=== PATIENT | male | born 1975 | race Caucasian/White ===

== ENCOUNTER 2019-03-23 16:04 | Emergency (ER) | payer BC, OTHER ==
--- OUTSIDE RECORDS SUMMARY | 2019-03-23 16:20 | XMS REPORT | Continuity of Care Document ---
:1975 External Reference #:[id number] Author Name Soco Mora M.D. Address [address] [place] [address] Care Team Providers Name Role Phone Danny Love MD - Internal Care Team Information Inspection Clerk Medicine Problems Active Problems Provider Date Benign essential hypertension Tesfaye Tyson, SHADI Onset: 06/28/2018 Testicular hypofunction Soco Mora M.D. Onset: 07/26/2018 Social History Type Date Description Comments Sex Unknown Smokeless Tobacco Never Used Smokeless Tobacco ETOH Use Rarely consumes alcohol Tobacco Use Start: Unknown End: Patient is a former smoker QUIT age 33 Unknown Recreational Drug Use Denies Drug Use Smoking Status Reviewed: 01/10/19 Patient is a former smoker QUIT age 33 Allergies, Adverse Reactions, Alerts Active Allergies Reaction Severity Comments Date Sulfa Drugs 06/28/2018 Medications Active Medications SIG Qnty Indications Ordering Date Provider 1ML Tuberculin Morgan, 02/03/2019 Syringe Detachable Leonel Wan Needle Slip Tip 21GX1" 21G X 1" 1 ML Misc Testosterone inject 0.5 milliliter 2units Morgan, 09/17/2018 Cypionate intramuscularly once Leonel Wan 200mg/ml week Solution Metoprolol 1 po daily Unknown Succinate ER 25mg Tablets ER 24HR Fish Oil 1 po daily Unknown 1000mg Capsules Multivitamin Adult 1 by mouth every day Unknown Tablets Vitamin C Immune 2 tab by mouth each Unknown Health day 500mg Chewtabs Vitamin D-3 1 by mouth every day Unknown 1000Unit Capsules Ibuprofen 200 1-2 tabs by mouth Unknown 200mg three times a day as Tablets needed Immunizations Description No Information Available Vital Signs Date Vital Result Comment 02/03/2019 3:47pm BP Systolic Sitting Left Arm 140 mmHg BP Diastolic Sitting Left Arm 78 mmHg Body Temperature 98.9 F Heart Rate 78 /min Respiratory Rate 16 /min Height 72 inches 6'0" Weight 252.12 lb BMI (Body Mass Index) 34.2 kg/m2 BSA (Body Surface Area) 2.35 m2 [place] body weight in kilograms 81 kg O2 % BldC Oximetry 97 % Ra Pain Level 0 07/26/2018 10:01am BP Systolic 148 mmHg BP Diastolic 83 mmHg Body Temperature 98.6 F Heart Rate 63 /min Respiratory Rate 18 /min Height 72 inches 6'0" Weight 250.00 lb BMI (Body Mass Index) 33.9 kg/m2 BSA (Body Surface Area) 2.34 m2 [place] body weight in kilograms 81 kg O2 % BldC Oximetry 97 % Pain Level 0 Results Test Acquired Date Facility Test Result H/L Range Note Laboratory test 01/31/2019 [facility] Testosteron 578 ng/dL 264-916 1, [address],[place] [address] [phone] Hematocrit 45.9 % Normal 38.0-48.0 Prostate Specific Antigen 0.89 ng/mL < 4.0 3 Laboratory 09/11/2018 [facility] Testosterone,Serum 145 Low 264-296 4, 5 test finding [address] ng/[place] [address] [phone] Hematocrit 45.1 % Normal 38.0-48.0 Laboratory 09/03/2018 [facility] Testosterone,Serum 941 High 264-916 6, 7 test finding [address] ng/[place] [address] [phone] Hematocrit 45.7 % Normal 38.0-48.0 1 R29.1 2 Adult male reference interval is based on a population of healthy nonobese males (BMI <30) between 19 and 39 years old. olive Mcdonald.al. JCEM 2017,102;6523-3778. PMID: 29148741. Performed at: - [facility] [address] [id number] Historical Interpreter: Lillie Bunch MD, Phone: [phone] 3 THIS ASSAY IS NOT INTENDED A CANCER SCREENING TEST The concentration of PSA in a given specimen, determined with assays from different manufacturers, can vary due to differences in assay methods and reagent specificity. Values obtained from different assay methods cannot be used interchangeably. Method: Siemens Dimension [place] Chemiluminescent immunoassay. 4 N29.1 5 Adult male reference interval is based on a population of healthy nonobese males (BMI <30) between 19 and 39 years old. Harry, et.al. JCEM 2017,102;3630-6158. PMID: 40152266. Performed at: - [facility] [place] [id number] Historical Interpreter: Lillie Bunch MD, Phone: [phone] NO DX E29.1 7 Adult male reference interval is based on a population of healthy nonobese males (BMI <30) between 19 and 39 years old. Harry, et.al. JCEM 2017,102;9432-3756. PMID: 95550911. Procedures Description No Information Available Medical Devices Description No Information Available Encounters Description No Information Available Assessments Date Code Description Provider 02/03/2019 E29.1 Testicular hypofunction Soco Mora M.D. Plan of Treatment 07/05/2018 - Tesfaye Tyson, PAE29.1 Testicular hypofunctionComments:We spent 10 minutes in [id number] consultation. Prior authorization for injectable testosterone Depakote and processed and we will see him back to begin therapy Functional Status Description No Information Available Mental Status Description No Information Available Referrals Description No Information Available
[2019-03-23 16:57] VITALS: BP 146/90
--- NOTE | 2019-03-23 17:26 | UC ---
Skin Complaint HPI - HPI Summary HPI Summary: 43-year-old male comes in with a chief complaint of a rash for 2 days. Primary on his stomach sides and back of his trunk. Is also on the upper arms. No difficulty swallowing or breathing. It does itch. Patient's on propanolol. He did sleep in a hotel room 3 nights ago. On March 17, 2019 and February he has shortness of breath that woke him up sleep. Reports that he went to the emergency department and had a CT scan and also of these Q scan to rule out blood clots. He reports that was no blood clots found. No shortness of breath now. He does have an appointment set up with his primary care physician also going to be checked for sleep apnea. No fevers no chills feels well otherwise. Has had a slightly dry throat first thing in the morning but no sore throat and denies any concerns of strep throat. - History of Current Complaint Chief Complaint: UCGeneralIllness Time Seen by Provider: 03/23/19 16:47 Stated Complaint: ALLERGIC REACTION/RASH/ITCHING Pain Intensity: 0 - Allergy/Home Medications Allergies/Adverse Reactions: Allergies Allergy/AdvReac Type Severity Reaction Status Date / Time Sulfa (Sulfonamide Allergy See Comment Verified 03/23/19 16:57 Antibiotics) Home Medications: Home Medications Diazepam TAB(*) [Valium TAB(*)] 10 mg PO Q8H PRN 03/23/19 [History Confirmed 08/05] Metoprolol Tartrate TAB* [Lopressor TAB*] 25 mg PO DAILY 03/23/19 [History Confirmed 03/23/19] Testosterone Cypionate [Depo-Testosterone] 100 mg IM SEE INSTRUCTIONS 03/23/19 [ History Confirmed 03/23/19] PMH/Surg Hx/FS Hx/Imm Hx Previously Healthy: Yes Cardiovascular History: Hypertension - Surgical History Surgical History: Yes - Family History Known Family History: Positive: Non-Contributory - Social History Alcohol Use: None Substance Use Type: None Smoking Status (MU): Never Smoked Tobacco Review of Systems All Other Systems Reviewed And Are Negative: Yes Constitutional: Positive: Other - SEE HPI Skin: Positive: Rash - SEE HPI Eyes: Positive: Negative ENT: Positive: Negative Respiratory: Positive: Other - SEE HPI Cardiovascular: Positive: Negative Gastrointestinal: Positive: Negative Motor: Positive: Negative Neurovascular: Positive: Negative Musculoskeletal: Positive: Negative Neurological: Positive: Negative Psychological: Positive: Negative Is Patient Immunocompromised?: No Physical Exam Triage Information Reviewed: Yes Appearance: Well-Appearing, No Pain Distress, Well-Nourished Vital Signs: Initial Vital Signs Temp 99.4 F 03/23/19 16:46 Pulse 88 03/23/19 16:46 Resp 24 03/23/19 16:46 BP 146/90 03/23/19 16:46 Pulse Ox 95 03/23/19 16:46 Vital Signs Reviewed: Yes Eye Exam: Normal Eyes: Positive: Conjunctiva Clear ENT: Positive: Pharynx normal Neck: Positive: Supple Respiratory: Positive: Lungs clear, Normal breath sounds, No respiratory distress Cardiovascular: Positive: RRR Musculoskeletal: Positive: Strength Intact, ROM Intact Neurological: Positive: Alert, Muscle Tone Normal Psychological: Positive: Age Appropriate Behavior Skin: Positive: Other - Diffuse slightly erythematous rash on trunk and back and upper arms that is blanching. Course/Dx - Course Course Of Treatment: Patient's rash is itchy. No known allergen. Denies any signs or symptoms of strep throat. We'll treat with a course of steroids. Follow-up primary care doctor. Get reevaluated sooner if worse with any fevers chills feels ill typically breathing or any other questions or concerns. - Diagnoses Provider Diagnosis: Rash Discharge ED - Sign-Out/Discharge Documenting (check all that apply): Patient Departure All imaging exams completed and their final reports reviewed: No Studies - Discharge Plan Condition: Stable Disposition: HOME Prescriptions: predniSONE 50 mg TAB [Deltasone 50 mg TAB] 50 mg PO DAILY #4 tab Patient Education Materials: Acute Rash (ED) Referrals: Danny Love MD [Primary Care Provider] - Additional Instructions: FOLLOW UP WITH YOUR DOCTOR. GET REEVALUATED SOONER IF NOT IMPROVING OR WORSE; SORE THROAT, FEVER, YOU FEEL ILL, DIFFICULTY WITH BREATHING OR SWALLOWING OR ANY QUESTIONS OR CONCERNS. - Billing Disposition and Condition Condition: STABLE Disposition: Home
== END 2019-03-23 17:59 | disposition home or self-care (01) ==
LOC: UCCORT 16:04
DX: R21 Rash and other nonspecific skin eruption (principal); I10 Essential (primary) hypertension; Z88.2 Allergy status to sulfonamides
CPT/HCPCS: 99202; G0463; J7512